=== PATIENT | male | born 1965 | race Caucasian/White ===

== ENCOUNTER 2019-06-01 15:03 | Emergency (ER) | payer BC ==
[~2019-06-01] VITALS: Ht 172.7 cm; Wt 87.2 kg
[~2019-06-01 15:03] MED LIST: AMLO-150 PO; ASPI-496 PO; ATOR40TA78 PO; CALC200T3 PO; CARV3.1212 PO; CARV3.122 PO; CEFT600V IV; DOCU-131 PO; ENAL10TA PO; FURO-93 PO; FURO20TA3 PO; FURO40TA6 PO; GABA300C PO; GABA300C10 PO; LISI40TA PO; LISI5TAB7 PO; METO-290 PO; MUPI22OI2 TP; POTA20LI2 PO; SENN-177 PO; SPIR50TA PO; SPIR50TA4 PO; TRAZ50TA66 PO
[2019-06-01 15:06] VITALS: BP 165/104
--- NOTE | 2019-06-01 15:19 | NUR ---
PT CAME IN CO OF ABDOMINAL PAIN. BEEN HAVING WATERY STOOL ALL DAY. HX OF CHF. DENIES BLOOD IN STOOL. ADMITS TO DRINKING PINT OF VODKA PER DAY. CALL LIGHT IS BEDSIDE.
[2019-06-01] MEDS ORDERED: MAALOX/HYOSCYAMINE/LIDOCAINE 45 ML BTL ONE (15:49)
[2019-06-01] MEDS ORDERED: MAALOX/HYOSCYAMINE/LIDOCAINE 45 ML BTL PO ONE (16:00)
[2019-06-01] MEDS ORDERED: SODIUM CHLORIDE 0.9%, 500ML IVBOLUS ONE (16:00)
[2019-06-01] MEDS ORDERED: THIAMINE 100MG TABLET PO ONE (16:00)
[2019-06-01] MEDS ORDERED: THIAMINE 100MG TABLET ONE (16:05)
[2019-06-01 16:15] LABS: BASOPHILS # (AUTO) 0.05 x10^3/uL (0-0.1); BASOPHILS % (AUTO) 1 % (0-1); EOSINOPHILS # (AUTO) 0.06 x10^3/uL (0-0.4); EOSINOPHILS % (AUTO) 1 % (1-7); LYMPHOCYTES # (AUTO) 0.92 x10^3/uL (1-3.4); LYMPHOCYTES % (AUTO) 22 % (22-44); MD NO; MEAN CORPUSCULAR HEMOGLOBIN 33.2 pg (27.5-34.5); MEAN CORPUSCULAR HGB CONC 33.7 g/dL (33.2-36.2); MEAN CORPUSCULAR VOLUME 98.6 fL (81-97); MEAN PLATELET VOLUME 7.2 fL (7.4-10.4); MONOCYTES # (AUTO) 0.39 x10^3/uL (0.2-0.8); MONOCYTES % (AUTO) 9 % (2-9); NEUTROPHILS # (AUTO) 2.84 x10^3/uL (1.8-6.8); NEUTROPHILS % (AUTO) 67 % (42-75); PLATELET COUNT 283 x10^3/uL (130-400); RED CELL DISTRIBUTION WIDTH 14.8 % (9.4-14.8)
[2019-06-01 16:25] LABS: ALBUMIN 3.7 g/dL (3.4-5.0); ANION GAP 10 mmol/L (5-15); CALCIUM 8.6 mg/dL (8.5-10.1); CHLORIDE 109 mmol/L (98-107)
[2019-06-01 16:28] LABS: ALANINE AMINOTRANSFERASE 78 U/L (12-78); ALKALINE PHOSPHATASE 144 U/L (45-117); BILIRUBIN,TOTAL 0.9 mg/dL (0.2-1.0); CREATININE 0.79 mg/dL (0.7-1.3); TOTAL PROTEIN 7.2 g/dL (6.4-8.2)
[2019-06-01] MEDS ORDERED: POTASSIUM CHLORIDE 20 MEQ TAB.ER.PRT PO ONE (17:00)
[2019-06-01] MEDS ORDERED: POTASSIUM CHLORIDE 20 MEQ TAB.ER.PRT ONE (17:00)
== END 2019-06-01 17:07 | disposition home or self-care (01) ==
LOC: ED 15:16
DX: K29.20 Alcoholic gastritis without bleeding (principal); F10.10 Alcohol abuse, uncomplicated; E87.6 Hypokalemia; R19.7 Diarrhea, unspecified; Y90.9 Presence of alcohol in blood, level not specified; I48.91 Unspecified atrial fibrillation; I50.9 Heart failure, unspecified
CPT/HCPCS: 36415; 74022; 76700; 80053; 83690; 85025; 93005; 96360; 99284; J7040